=== PATIENT | male | born 1940 | race Caucasian/White ===

== ENCOUNTER 2016-11-06 01:25 | Emergency (ER) | payer MEDICARE ==
[2016-11-06 02:22] LABS: BASO % 0.2 % (0-6); EOS % 3.6 % (0-6); GRAN % 73.9 % (47-80); HEMATOCRIT 37.4 % (42.0-52.0); HEMOGLOBIN 12.8 gm/dl (14.0-18.0); LYMPH % 14.6 % (16-45); MEAN CELL VOLUME 95.4 fl (81-97); MEAN CORPUSCULAR HEMOGLOBIN 32.6 pg (27-33); MEAN CORPUSCULAR HGB CONC 34.2 g/dl (32-36); MEAN PLATELET VOLUME 9.2 fl (7.4-10.4); MONO % 7.7 % (0-9); PLATELET COUNT 234 K/uL (130-400); RED BLOOD COUNT 3.92 M/uL (4.40-5.70); RED CELL DISTRIBUTION WIDTH 13.1 % (11.5-14.5); WHITE BLOOD COUNT W/O DIFF 10.3 K/uL (4.2-12.2)
[2016-11-06 02:32] LABS: ANION GAP 9.5 (7-16); BLOOD UREA NITROGEN 23 mg/dL (9-20); CARBON DIOXIDE 26.5 mmol/L (22-30); CREATINE PHOSPHOKINASE 153 U/L (55-170); EST GLOMERULAR FILTRATION RATE > 60 ml/min; GLUCOSE,RANDOM 121 mg/dL (70-110)
[2016-11-06 02:44] LABS: CKMB 4.2 ug/L (0-6); TROPONIN I < 0.012 ng/mL (0.00-0.034)
--- NOTE | 2016-11-06 03:57 | Emergency Department Record ---
History of Present Illness - General Chief Complaint: Hypertension Stated Complaint: HIGH BP/HEADACHE Time Seen by Provider: 11/06/16 02:12 Source: Patient, Family Mode of Arrival: Ambulatory Limitations: No limitations - History of Present Illness Initial Comments: pt missed his morning dose of bp med and noticed his bp was high. he then started getting a headache. he took his med in the afternoon but his bp contd to be high so he took a second dose of bp med. he contd to have hi bp and headache so he came in. pt has no chest pain and no other symptoms MD Complaint: Other Onset/Timin -: Hour(s) Timing: Gradual onset Severity: Mild - Emil Coma Scale Eye Response: (4) Open spontaneously Motor Response: (6) Obeys commands Verbal Response: (5) Oriented Ramsay Total: 15 - Related Data Home Medications Medication Instructions Recorded Confirmed Last Taken Enalapril Maleate [Vasotec] 20 mg PO DAILY 02/28/15 11/06/16 Unknown Escitalopram Oxalate [Lexapro] 20 mg PO DAILY 02/28/15 11/06/16 Unknown Omeprazole 20 mg PO BID 02/28/15 11/06/16 Unknown Pramipexole Di-HCl [Mirapex] 0.25 mg PO TID 02/28/15 11/06/16 Unknown Aspirin [Aspirin EC] 325 mg PO DAILY 11/06/16 11/06/16 Unknown Allergies Allergy/AdvReac Type Severity Reaction Status Date / Time No Known Drug Allergies Allergy Verified 11/06/16 01:30 Travel Screening - Travel/Exposure Within Last 30 Days Have you traveled within the last 30 days?: No Review of Systems Reviewed: No additional complaints except as noted below Constitutional: Reports: As per HPI. Denies: Chills, Fever, Malaise, Night sweats, Weakness, Weight change Eyes: Reports: As per HPI. Denies: Eye discharge, Eye pain, Photophobia, Vision change ENT: Reports: As per HPI. Denies: Congestion, Dental pain, Ear pain, Epistaxis , Hearing loss, Throat pain Respiratory: Reports: As per HPI. Denies: Cough, Dyspnea, Hemoptysis, Stridor, Wheezes Cardiovascular: Reports: As per HPI. Denies: Arrhythmia, Chest pain, Dyspnea on exertion, Edema, Murmurs, Orthopnea, Palpitations, Paroxysmal nocturnal dyspnea, Rheumatic Fever, Syncope Endocrine: Reports: As per HPI. Denies: Fatigue, Heat or cold intolerance, Polydipsia, Polyuria Gastrointestinal: Reports: As per HPI. Denies: Abdominal pain, Constipation, Diarrhea, Hematemesis, Hematochezia, Melena, Nausea, Vomiting Genitourinary: Reports: As per HPI. Denies: Dysuria, Frequency, Hematuria, Incontinence, Retention, Testicular pain, Testicular mass, Urgency Musculoskeletal: Reports: As per HPI. Denies: Arthralgia, Back pain, Gout, Joint swelling, Myalgia, Neck pain Skin: Reports: As per HPI. Denies: Bruising, Change in color, Change in hair/ nails, Lesions, Pruritus, Rash Neurological: Reports: As per HPI. Denies: Abnormal gait, Confusion, Headache, Numbness, Paresthesias, Seizure, Tingling, Tremors, Vertigo, Weakness Psychiatric: Reports: As per HPI. Denies: Anxiety, Auditory hallucinations, Depression, Homicidal thoughts, Suicidal thoughts, Visual hallucinations Hematological/Lymphatic: Reports: As per HPI. Denies: Anemia, Blood Clots, Easy bleeding, Easy bruising, Swollen glands Past Medical History - SOCIAL HISTORY Smoking Status: Never smoker Alcohol Use: None Drug Use: None - RESPIRATORY Hx Respiratory Disorders: Yes Hx Sleep Apnea: Yes Hx of CPAP: Yes - CARDIOVASCULAR Hx Cardio Disorders: Yes Hx Hypertension: Yes Hx Irregular Heartbeat: Yes (20 years ago-> no problems) - NEURO Hx Neuro Disorders: Yes Hx Neuropathy: Yes (right foot) Comment:: "poor balance" - GI Hx GI Disorders: Yes Hx Reflux: Yes Hx Hiatal Hernia: Yes Hx Nausea/Vomiting: Yes Hx of Polyps: Yes - Hx Genitourinary Disorders: Yes Hx Prostate Problems: Yes (cancer) - ENDOCRINE Hx Endocrine Disorders: No - MUSCULOSKELETAL Hx Musculoskeletal Disorders: Yes Hx Arthritis: Yes Comment:: right knee and shoulder currently painful - PSYCH Hx Psych Problems: Yes Hx Anxiety: Yes Hx Depression: Yes Comment:: PTSD - HEMATOLOGY/ONCOLOGY Hx Hematology/Oncology Disorders: Yes Hx Cancer: Yes Hx Chemotherapy: No Hx Radiation Therapy: No Family Medical History Any Significant Family History?: Yes Hx Cancer: Mother, Grandparents *Cancer Comment: breast Hx Seizures: Children *Seizure Comment: r/t pituitary disorder Physical Exam - General General Appearance: Alert, Oriented x3, Cooperative, Mild distress - Head Head exam: Normal inspection - Eye Eye exam: Normal appearance, PERRL, EOMI Pupils: Normal accommodation - ENT ENT exam: Normal exam, Mucous membranes moist, Normal external ear exam, Normal orophraynx, TM's normal bilaterally Ear exam: Normal external inspection. negative: External canal tenderness Nasal Exam: Normal inspection. negative: Discharge, Sinus tenderness Mouth exam: Normal external inspection, Tongue normal Teeth exam: Normal inspection. negative: Dental caries Throat exam: Normal inspection. negative: Tonsillar erythema, Tonsillar exudate - Neck Neck exam: Normal inspection, Full ROM. negative: Tenderness - Respiratory Respiratory exam: Normal lung sounds bilaterally. negative: Respiratory distress - Cardiovascular Cardiovascular Exam: Regular rate, Normal rhythm, Normal heart sounds - GI/Abdominal GI/Abdominal exam: Soft, Normal bowel sounds. negative: Tenderness - Rectal Rectal exam: Deferred - exam: Deferred - Extremities Extremities exam: Normal inspection, Full ROM, Normal capillary refill. negative: Tenderness - Back Back exam: Reports: Normal inspection, Full ROM. Denies: Muscle spasm, Rash noted, Tenderness - Neurological Neurological exam: Alert, CN II-XII intact, Normal gait, Oriented X3 - Psychiatric Psychiatric exam: Normal affect, Normal mood - Skin Skin exam: Dry, Intact, Normal color, Warm Course Vital Signs 11/06/16 01:32 Temperature 97.3 F L Pulse Rate 81 Respiratory 18 Rate Blood Pressure 185/117 Pulse Ox 97 - Reevaluation(s) Reevaluation #1: 11/06/16 03:58 pt feels much better. headache is gone. pts ct is neg for acute. he does have age related atrophy which is greater on the left. i compard this to old ct from 2013 and it was present then. Medical Decision Making - Lab Data Result diagrams: 11/06/16 01:55 11/06/16 01:55 Lab Results 11/06/16 11/06/16 Range/Units 01:55 01:55 WBC 10.3 (4.2-12.2) K/uL RBC 3.92 L (4.40-5.70) M/uL Hgb 12.8 L (14.0-18.0) gm/dl Hct 37.4 L (42.0-52.0) % MCV 95.4 (81-97) fl MCH 32.6 (27-33) pg MCHC 34.2 (32-36) g/dl RDW 13.1 (11.5-14.5) % Plt Count 234 (130-400) K/uL MPV 9.2 (7.4-10.4) fl Gran % 73.9 (47-80) % Lymphocytes % 14.6 L (16-45) % Monocytes % 7.7 (0-9) % Eosinophils % 3.6 (0-6) % Basophils % 0.2 (0-6) % Sodium 137 (136-145) mmol/L Potassium 3.8 (3.5-5.1) mmol/L Chloride 101 (98-107) mmol/L Carbon Dioxide 26.5 (22-30) mmol/L Anion Gap 9.5 (7-16) BUN 23 H (9-20) mg/dL Creatinine 1.0 (0.66-1.25) mg/dL Estimated GFR > 60 ml/min Random Glucose 121 H (70-110) mg/dL Calcium 9.3 (8.5-10.1) mg/dL Creatine Kinase 153 (55-170) U/L CK-MB (CK-2) 4.2 (0-6) ug/L Troponin I < 0.012 (0.00-0.034) ng/mL Disposition Disposition: Discharge Clinical Impression: Hypertension Qualifiers: Hypertension type: essential hypertension Qualified Code(s): I10 - Essential ( primary) hypertension Headache Qualifiers: Headache type: other vascular headache Qualified Code(s): G44.1 - Vascular headache, not elsewhere classified Disposition: Home, Self-Care Condition: (1) Good Instructions: Hypertension (ED) Additional Instructions: follow up with family doctor. return sooner if worse. recheck blood pressure today and if it continues contact family doctor. Forms: Patient Portal Access
--- NOTE | 2016-11-12 12:53 | CT SCAN REPORT ---
EXAM: CT OF THE BRAIN WITHOUT CONTRAST HISTORY: ELEVATED BLOOD PRESSURE. TECHNIQUE: CT of the brain without contrast was obtained. Comparison: MRI of the brain from 12/26/13. FINDINGS: The globes are intact. The paranasal sinuses and mastoid air cells are unremarkable. No displaced or depressed skull fracture. No intra or extraaxial hemorrhage. CT is limited for the evaluation of acute infarct. No CT evidence for large or territorial acute infarct. No mass or midline shift. Age appropriate atrophy. Hypodensities in the periventricular and subcortical white matter consistent with sequelae of small vessel ischemic change. IMPRESSION: 1. ATROPHY. SMALL VESSEL ISCHEMIC CHANGE. 2. NOT STATED PREVIOUSLY, SLIGHT PROMINENCE OF THE EXTRAAXIAL SPACE IN THE HIGH LEFT PARIETAL REGION FOR WHICH SUBDURAL HYGROMA IS NOT EXCLUDED. JOB NUMBER: [id number] MTDD
== END 2016-11-06 04:19 | disposition home or self-care (01) ==
LOC: ER 01:25
DX: I10 Essential (primary) hypertension (principal); G44.1 Vascular headache, not elsewhere classified
CPT/HCPCS: 70450; 80048; 82550; 82553; 84484; 85025; 93005; 93010; 99284